=== PATIENT | male | born 1955 | race Caucasian/White ===

== ENCOUNTER 2019-05-31 13:05 | Emergency (ER) | payer OTHER ==
[~2019-05-31] VITALS: Ht 170.2 cm; Wt 109.1 kg
[2019-05-31 13:10] VITALS: BP 146/99
--- NOTE | 2019-05-31 13:38 | RAD ---
CHEST PA LATERAL Technique: PA and lateral views of the chest were obtained. Clinical History: Cough Comparison: None. Findings: The heart and pulmonary vasculature appear within normal limits. The lungs are clear. The pleural margins are clear. Impression: No acute chest process is seen. Electronically signed by: Dave Davison III, MD (05/31/2019 1:35 PM) [id number]
--- NOTE | 2019-05-31 13:44 | PHYS DOC ---
Past History Past Medical History: COPD, Pneumonia Past Surgical History: Other Additional Past Surgical Histo: RIGHT KNEE Smoking: Non-smoker Alcohol Use: Rarely Adult General Chief Complaint Chief Complaint: FLU SYMPTOM HPI HPI Patient is a 64-year-old male who presents to the emergency department for evaluation. He states over a week ago he developed nasal congestion, which resulted in a productive cough, productive of greenish sputum. He states he has had some mild increased shortness of breath. Denies any orthopnea, or any chest pain, pleuritic or otherwise. He states he had an episode of hemoptysis today, where he coughed up some blood-tinged sputum, which prompted his coming to the emergency department. He denies any pain at this time, is not having nausea, or vomiting. He states he has been diagnosed with COPD in the , and has got pneumonia numerous times in the past, but not recently. Traveled to [place] in the middle of January, but has had no other recent travel. There are no alleviating or exacerbating factors to his symptoms otherwise. Review of Systems Review of Systems Constitutional: Denies fever or chills [] Eyes: Denies change in visual acuity, redness, or eye pain [] HENT: Denies current nasal congestion or sore throat [] Respiratory: No additional information not addressed in HPI [] Cardiovascular: The patient denies any chest pain, palpitations, or orthopnea [] GI: Denies abdominal pain, nausea, vomiting, bloody stools or diarrhea [] : Denies dysuria or hematuria [] Musculoskeletal: Denies back pain or joint pain [] Integument: Denies rash or skin lesions [] Neurologic: Denies headache, focal weakness or sensory changes [] Endocrine: Denies polyuria or polydipsia [] All other systems were reviewed and found to be within normal limits, except as documented in this note. Allergies Allergies Allergies Coded Allergies Type Severity Reaction Last Updated Verified No Known Drug Allergies 05/31/19 No Physical Exam Physical Exam Constitutional: Well developed, well nourished, no acute distress, non-toxic appearance. [] HENT: Normocephalic, atraumatic, bilateral external ears normal, oropharynx moist, no oral exudates, nose normal. [] Eyes: PERRLA, EOMI, conjunctiva normal, no discharge. [] Neck: Normal range of motion, no tenderness, supple, no stridor. [] Cardiovascular:Heart rate regular rhythm, no murmur [] Lungs & Thorax: Bilateral breath sounds clear to auscultation [] Abdomen: Bowel sounds normal, soft, no tenderness, no masses, no pulsatile masses. [] Skin: Warm, dry, no erythema, no rash. [] Back: No tenderness, no CVA tenderness. [] Extremities: No tenderness, no cyanosis, no clubbing, ROM intact, no edema. [] Neurologic: Alert and oriented X 3, normal motor function, normal sensory function, no focal deficits noted. [] Psychologic: Affect normal, judgement normal, mood normal. [] Current Patient Data Vital Signs PHYSICAL EXAM: CONSTITUTIONAL: Well developed, well nourished HEAD: normocephalic, atraumatic EENT: PERRL, EOMI. Conjunctivae normal color, sclerae non-icteric; moist mucous membranes. NECK: Supple, non-tender; no meningismus. LUNGS: Very faint scattered rhonchi in the left, otherwise Lungs CTA, breathing even and unlabored. Normal air movement. HEART: Regular rate and rhythm, no murmur CHEST: No deformity; non-tender ABDOMEN: The abdomen is soft, and non-tender, no masses or bruits. EXTREM: Normal ROM; no deformity, no calf tenderness. Normal pulses palpable in all extremities. There is trace pedal edema. SKIN: No rash; no diaphoresis NEURO: Alert; normal speech and cognition; CN's grossly intact; strength grossly intact without focal deficit. BACK: No CVA TTP. Vital Signs Date Time Temp Pulse Resp B/P (MAP) Pulse Ox O2 Delivery O2 Flow Rate FiO2 05/31/19 13:10 98.0 69 20 146/99 (115) 95 Room Air Lab Results Laboratory Tests Test 05/31/19 13:18 05/31/19 13:45 Influenza Type A (Rapid) Negative Influenza Type B (Rapid) Negative White Blood Count 7.8 x10^3/uL Red Blood Count 5.25 x10^6/uL Hemoglobin 15.2 g/dL Hematocrit 45.4 % Mean Corpuscular Volume 87 fL Mean Corpuscular Hemoglobin 29 pg Mean Corpuscular Hemoglobin Concent 33 g/dL Red Cell Distribution Width 12.6 % Platelet Count 264 x10^3/uL Neutrophils (%) (Auto) 59 % Lymphocytes (%) (Auto) 32 % Monocytes (%) (Auto) 7 % Eosinophils (%) (Auto) 1 % Basophils (%) (Auto) 1 % Neutrophils # (Auto) 4.6 x10^3uL Lymphocytes # (Auto) 2.5 x10^3/uL Monocytes # (Auto) 0.6 x10^3/uL Eosinophils # (Auto) 0.1 x10^3/uL Basophils # (Auto) 0.1 x10^3/uL Sodium Level 139 mmol/L Potassium Level 3.9 mmol/L Chloride Level 102 mmol/L Carbon Dioxide Level 28 mmol/L Anion Gap 9 Blood Urea Nitrogen 22 mg/dL Creatinine 1.1 mg/dL Estimated GFR (Cockcroft-Gault) 67.8 BUN/Creatinine Ratio 20 Glucose Level 108 mg/dL Calcium Level 8.9 mg/dL Total Bilirubin 0.5 mg/dL Aspartate Amino Transf (AST/SGOT) 36 U/L Alanine Aminotransferase (ALT/SGPT) 72 U/L Alkaline Phosphatase 70 U/L Troponin I Quantitative < 0.017 ng/mL [id number]-Type Natriuretic Peptide 16 pg/mL Total Protein 7.4 g/dL Albumin 3.8 g/dL Albumin/Globulin Ratio 1.1 EKG EKG []Normal sinus rhythm at a rate of 59 beats for minute, borderline left axis deviation, normal intervals. There are no acute ischemic ST/T changes. Radiology/Procedures Radiology/Procedures ER physician preliminary chest x-ray interpretation: No acute disease.[] Course & Med Decision Making Course & Med Decision Making Pertinent Labs and Imaging studies reviewed. (See chart for details) Patient remains stable. I discussed test results, the need for close follow-up, and return precautions. Patient states he has had some bloody nasal mucus, which might be the source of his hemoptysis today but it did discuss importance of close outpatient follow-up with pulmonology for further evaluation. Dragon Disclaimer Dragon Disclaimer This electronic medical record was generated, in whole or in part, using a voice recognition dictation system. Departure Departure: Impression: Primary Impression: Cough Additional Impression: Hemoptysis Disposition: HOME, SELF-CARE Condition: STABLE Referrals: PCP,NO (PCP) Patient Instructions: Cough, Adult, Hemoptysis Additional Instructions: Follow-up with pulmonology for further evaluation. Please call [phone] to schedule an appointment. Problem Qualifiers CAREY BYRNES MD May 31, 2019 13:44
[2019-05-31 14:02] LABS: BASO # 0.1 x10^3/uL (0.0-0.2); BASO % 1 % (0-3); EOS # 0.1 x10^3/uL (0.0-0.7); EOS % 1 % (0-3); HEMATOCRIT 45.4 % (39.0-53.0); HEMOGLOBIN 15.2 g/dL (13.0-17.5); LYMPH # 2.5 x10^3/uL (1.0-4.8); LYMPH % 32 % (24-48); MEAN CORPUSCULAR HEMOGLOBIN 29 pg (25-35); MEAN CORPUSCULAR HGB CONC 33 g/dL (31-37); MEAN CORPUSCULAR VOLUME 87 fL (79-100); MONO # 0.6 x10^3/uL (0.0-1.1); MONO % 7 % (0-9); NEUT # 4.6 x10^3uL (1.8-7.7); NEUT % 59 % (31-73); PLATELET COUNT 264 x10^3/uL (140-400); RED BLOOD COUNT 5.25 x10^6/uL (4.30-5.70); RED CELL DISTRIBUTION WIDTH 12.6 % (11.5-14.5); WHITE BLOOD COUNT 7.8 x10^3/uL (4.0-11.0)
[2019-05-31 14:05] LABS: INFLUENZA A PATIENT NEGATIVE (NEGATIVE); INFLUENZA B PATIENT NEGATIVE (NEGATIVE)
[2019-05-31 14:14] LABS: CALCIUM 8.9 mg/dL (8.5-10.1); CREATININE 1.1 mg/dL (0.7-1.3); GFR 67.8; POTASSIUM 3.9 mmol/L (3.5-5.1)
--- NOTE | 2019-05-31 14:23 | EKG ---
[address] [address] Test Date: 2019-05-31 Test Time: 14:02:55 Pat Name: GUS JAVED Department: Room: Gender: M [employer]: : 1955 Requested By: CAREY BYRNES Order Number: [id number] Reading MD: Measurements Intervals Ignacio Rate: 59 P: 17 WI: 156 QRS: -5 QRSD: 86 T: 38 QT: 388 QTc: 384 Interpretive Statements SINUS RHYTHM LEFTWARD AXIS NO SPECIFIC ECG ABNORMALITIES RI6.01 No previous ECG available for comparison
[2019-05-31 14:26] LABS: ALBUMIN 3.8 g/dL (3.4-5.0); ALBUMIN/GLOBULIN RATIO 1.1 (1.0-1.7); TOTAL BILIRUBIN 0.5 mg/dL (0.2-1.0); TOTAL PROTEIN 7.4 g/dL (6.4-8.2)
== END 2019-05-31 14:48 | disposition home or self-care (01) ==
LOC: ER 13:05
DX: R04.2 Hemoptysis (principal); J44.9 Chronic obstructive pulmonary disease, unspecified
CPT/HCPCS: 36415; 71046; 80053; 83880; 84484; 85025; 87804; 93005; 99285